=== PATIENT | male | born 1960 | race Caucasian/White ===

== ENCOUNTER 2019-10-01 16:51 | Emergency (ER) | payer MEDICARE, OTHER ==
[~2019-10-01] VITALS: Ht 182.9 cm; Wt 83.9 kg
[2019-10-01] MEDS ORDERED: fentaNYL PF VIAL 100 MCG/2 ML VIAL IVP ONE (17:45)
--- NOTE | 2019-10-01 18:00 | PHYS DOC ---
Past Medical History Past Medical History: COPD, GERD Additional Past Medical Histor: GOUT (IZABELLA HURLEY MD) Past Surgical History: No Surgical History (IZABELLA HURLEY MD) Alcohol Use: None Drug Use: None (IZABELLA HURLEY MD) Adult General Chief Complaint Chief Complaint: HAND PROBLEM HPI HPI Patient is a 59 year old right-handed male with history of gout and smoking who presents with complaining of left hand pain and swelling. Patient complaining of nontraumatic left hand edema and pain for more than one week that gradually getting worse. Patient states he feels more pain with movement of his finger and denies injury, fever and chills, focal neuro deficit, history of the same problem. Patient states he had history of gout and thought he had gout but his edema and pain became worse. (IZABELLA HURLEY MD) Review of Systems Review of Systems Constitutional: Denies fever or chills [] Eyes: Denies change in visual acuity, redness, or eye pain [] HENT: Denies nasal congestion or sore throat [] Respiratory: Denies cough or shortness of breath [] Cardiovascular: No additional information not addressed in HPI [] GI: Denies abdominal pain, nausea, vomiting, bloody stools or diarrhea [] : Denies dysuria or hematuria [] Musculoskeletal: Denies back pain, reports joint pain [] Integument: Denies rash or skin lesions [] Neurologic: Denies headache, focal weakness or sensory changes [] Endocrine: Denies polyuria or polydipsia [] All other systems were reviewed and found to be within normal limits, except as documented in this note. (IZABELLA HURLEY MD) Current Medications Current Medications Current Medications Medications (Trade) Dose Ordered Sig/Shimon Start Time Stop Time Status Last Admin Dose Admin Fentanyl Citrate (Fentanyl 2ml Vial) 50 mcg 1X ONCE 10/01/19 17:45 10/01/19 17:46 DC 10/01/19 18:51 50 MCG (CARLEY DUPREE MD) Allergies Allergies Allergies Coded Allergies Type Severity Reaction Last Updated Verified No Known Drug Allergies 10/01/19 No (CARLEY DUPREE MD) Physical Exam Physical Exam Constitutional: Well developed, well nourished, mild distress, non-toxic appearance. [] HENT: Normocephalic, atraumatic. Eyes: PERRLA, EOMI, conjunctiva normal, no discharge. [] Neck: Normal range of motion, no tenderness, supple, no stridor. [] Cardiovascular:Heart rate regular rhythm, no murmur [] Lungs & Thorax: Bilateral breath sounds clear to auscultation [] Extremities: Left hand with severe edema without erythema, mild tenderness, palpable radial pulse but pale fingers with decrease of cap refill. Neurologic: Alert and oriented X 3, no focal deficits noted. [] Psychologic: Affect normal, judgement normal, mood normal. [] (IZABELLA HURLEY MD) Current Patient Data Vital Signs Vital Signs Date Time Temp Pulse Resp B/P (MAP) Pulse Ox O2 Delivery O2 Flow Rate FiO2 10/01/19 18:51 20 95 Room Air 10/01/19 18:49 64 154/95 (114) 10/01/19 17:05 97.8 97.8 (CARLEY DUPREE MD) Lab Values Laboratory Tests Test 10/01/19 18:42 White Blood Count 11.0 x10^3/uL (4.0-11.0) Red Blood Count 4.19 x10^6/uL (4.30-5.70) L Hemoglobin 13.3 g/dL (13.0-17.5) Hematocrit 39.5 % (39.0-53.0) Mean Corpuscular Volume 95 fL (79-100) Mean Corpuscular Hemoglobin 32 pg (25-35) Mean Corpuscular Hemoglobin Concent 34 g/dL (31-37) Red Cell Distribution Width 16.1 % (11.5-14.5) H Platelet Count 293 x10^3/uL (140-400) Neutrophils (%) (Auto) 62 % (31-73) Lymphocytes (%) (Auto) 30 % (24-48) Monocytes (%) (Auto) 5 % (0-9) Eosinophils (%) (Auto) 2 % (0-3) Basophils (%) (Auto) 1 % (0-3) Neutrophils # (Auto) 6.8 x10^3/uL (1.8-7.7) Lymphocytes # (Auto) 3.3 x10^3/uL (1.0-4.8) Monocytes # (Auto) 0.5 x10^3/uL (0.0-1.1) Eosinophils # (Auto) 0.2 x10^3/uL (0.0-0.7) Basophils # (Auto) 0.1 x10^3/uL (0.0-0.2) Prothrombin Time 12.4 SEC (11.7-14.0) Prothrombin Time INR 1.0 (0.8-1.1) Activated Partial Thromboplast Time 34 SEC (24-38) Sodium Level 134 mmol/L (136-145) L Potassium Level 4.8 mmol/L (3.5-5.1) Chloride Level 99 mmol/L (98-107) Carbon Dioxide Level 26 mmol/L (21-32) Anion Gap 9 (6-14) Blood Urea Nitrogen 27 mg/dL (8-26) H Creatinine 1.9 mg/dL (0.7-1.3) H Estimated GFR (Cockcroft-Gault) 36.2 BUN/Creatinine Ratio 14 (6-20) Glucose Level 91 mg/dL (70-99) Lactic Acid Level 0.7 mmol/L (0.4-2.0) Uric Acid 9.8 mg/dL (3.5-7.2) H Calcium Level 9.7 mg/dL (8.5-10.1) Total Bilirubin 0.3 mg/dL (0.2-1.0) Aspartate Amino Transferase (AST) 58 U/L (15-37) H Alanine Aminotransferase (ALT) 32 U/L (16-63) Alkaline Phosphatase 111 U/L (46-116) Total Protein 8.6 g/dL (6.4-8.2) H Albumin 3.9 g/dL (3.4-5.0) Albumin/Globulin Ratio 0.8 (1.0-1.7) L Laboratory Tests 10/01/19 18:42 Laboratory Tests 10/01/19 18:42 (CARLEY DUPREE MD) EKG EKG [] (IZABELLA HURLEY MD) Radiology/Procedures Radiology/Procedures [] (IZABELLA HURLEY MD) Radiology/Procedures [facility] [address] [place], [place] [id number] IMAGING REPORT Signed PATIENT: GENA LADD ACCOUNT: [id number] : 1960 LOCATION: ER AGE: 59 SEX: M EXAM STATUS: REG ER ORD. PHYSICIAN: IZABELLA HURLEY MD REASON: severe edema of left hand with pale fingers, + radial pulse PROCEDURE: VENOUS UPPER EXTREMITY LEFT Left upper extremity venous Doppler dated 10/01/2019. No comparison available. Clinical data indication: Edema left hand. FINDINGS: Grayscale, color-flow and spectral waveform analysis performed to include the deep venous system of the left upper extremity. There is normal compressibility, phasicity and augmentation of flow throughout the deep veins. The distal cephalic vein in the forearm shows incomplete filling and may be partially occluded. There is also a nodular focus of arterial flow that appears to communicate with the distal left radial artery, measuring up to 1.5 cm in size. IMPRESSION: 1. No evidence of left upper extremity deep vein thrombosis. 2. Ovoid 1.5 cm nodular focus of arterial flow appears to indicate with the distal left radial artery, suggesting aneurysm or pseudoaneurysm. Correlate clinically. 3. Partially occlusive thrombosis or focal narrowing of the distal cephalic vein in the forearm. Electronically signed by: Vidal Baird MD (10/01/2019 6:08 PM) [facility] DICTATED and SIGNED BY: VIDAL BAIRD MD DATE: 10/01/191807 (CARLEY DUPREE MD) Course & Med Decision Making Course & Med Decision Making Pertinent Labs and Imaging studies pending. Sign out given to at 1800 for further evaluation and final disposition. Discussed current findings and plan with patient and family, who acknowledge understanding and agreement. (IZABELLA HURLEY MD) Course & Med Decision Making Ultrasound reveals superficial nonocclusive DVT in cephalic vein, no evidence of DVT. He does have narrowing with some focal arterial blood flow however pulses appreciated distally. Recommend follow with hand as an outpatient a [facility]. Uric acid is elevated at 9.8. We'll treat with colchicine however will need to have kidney function monitor closely given creatinine 1.9. Lactic acid 0.7, hemoglobin stable, white blood cell count 11.0. Recommend po abx therapy for potential developing cellulitis however likely gout related. Discussed return precautions with patient and friend at bedside. (CARLEY DUPREE MD) Dragon Disclaimer Dragon Disclaimer This electronic medical record was generated, in whole or in part, using a voice recognition dictation system. (IZABELLA HURLEY MD) Departure Departure Impression: Primary Impression: Hand edema Additional Impressions: Gout ILIANA (acute kidney injury) Disposition: HOME, SELF-CARE Condition: STABLE Referrals: NON,STAFF (PCP) Patient Instructions: Cellulitis, [id number], Gout, [id number], Peripheral Edema Additional Instructions: Recommend follow up with PCP 3 - 5 days Return to the ER with worsening symptoms, intractable pain, fever, altered mental status Tylenol/Motrin as needed for pain Take antibiotics and medications as directed Keflex 500mg 2 po BID x 7 days Uric acid rx provided upon discharge Return precautions - watch for streaking, increased swelling, pain, change in color of finger tips, pain to finger tips Scripts Colchicine (Colchicine) 0.6 Mg Tablet 1 TAB PO BID for gout pain for 3 Days, #6 TAB 0 Refills Prov: CARLEY DUPREE MD 10/01/19 Cephalexin (KEFLEX) 500 Mg Capsule 2 CAP PO Q12HR for 7 Days, #28 CAP Prov: CARLEY DUPREE MD 10/01/19 Problem Qualifiers IZABELLA HURLEY MD Oct 01, 2019 18:00 CARLEY DUPREE MD Oct 01, 2019 19:27
--- NOTE | 2019-10-01 18:11 | RAD ---
Left upper extremity venous Doppler dated 10/01/2019. No comparison available. Clinical data indication: Edema left hand. FINDINGS: Grayscale, color-flow and spectral waveform analysis performed to include the deep venous system of the left upper extremity. There is normal compressibility, phasicity and augmentation of flow throughout the deep veins. The distal cephalic vein in the forearm shows incomplete filling and may be partially occluded. There is also a nodular focus of arterial flow that appears to communicate with the distal left radial artery, measuring up to 1.5 cm in size. IMPRESSION: 1. No evidence of left upper extremity deep vein thrombosis. 2. Ovoid 1.5 cm nodular focus of arterial flow appears to indicate with the distal left radial artery, suggesting aneurysm or pseudoaneurysm. Correlate clinically. 3. Partially occlusive thrombosis or focal narrowing of the distal cephalic vein in the forearm. Electronically signed by: Vidal Baird MD (10/01/2019 6:08 PM) [facility]
[2019-10-01 18:53] LABS: BASO # 0.1 x10^3/uL (0.0-0.2); BASO % 1 % (0-3); EOS # 0.2 x10^3/uL (0.0-0.7); EOS % 2 % (0-3); HEMATOCRIT 39.5 % (39.0-53.0); HEMOGLOBIN 13.3 g/dL (13.0-17.5); LYMPH # 3.3 x10^3/uL (1.0-4.8); LYMPH % 30 % (24-48); MEAN CORPUSCULAR HEMOGLOBIN 32 pg (25-35); MEAN CORPUSCULAR HGB CONC 34 g/dL (31-37); MEAN CORPUSCULAR VOLUME 95 fL (79-100); MONO # 0.5 x10^3/uL (0.0-1.1); MONO % 5 % (0-9); NEUT # 6.8 x10^3/uL (1.8-7.7); NEUT % 62 % (31-73); PLATELET COUNT 293 x10^3/uL (140-400); RED BLOOD COUNT 4.19 x10^6/uL (4.30-5.70); RED CELL DISTRIBUTION WIDTH 16.1 % (11.5-14.5)
[2019-10-01 19:01] LABS: CALCIUM 9.7 mg/dL (8.5-10.1); CREATININE 1.9 mg/dL (0.7-1.3); GFR 36.2; POTASSIUM 4.8 mmol/L (3.5-5.1)
[2019-10-01 19:02] LABS: PROTHROMBIN TIME PATIENT 12.4 SEC (11.7-14.0)
[2019-10-01 19:16] LABS: ALBUMIN 3.9 g/dL (3.4-5.0); ALBUMIN/GLOBULIN RATIO 0.8 (1.0-1.7); TOTAL BILIRUBIN 0.3 mg/dL (0.2-1.0); TOTAL PROTEIN 8.6 g/dL (6.4-8.2)
[2019-10-01 19:18] VITALS: BP 155/97
[2019-10-01] MEDS ORDERED: CEPH-264 PO (19:26)
[2019-10-01] MEDS ORDERED: COLC0.6T42 PO (19:26)
[2019-10-01 19:35] LABS: % BANDS 3 % (0-9); % BASOS 2 % (0-3); % LYMPHS 41 % (24-48); % MONOS 3 % (0-10); % SEGS 51 % (35-66); PLATELET CLUMP PRESENT; PLT ESTIMATE ADEQUATE (ADEQUATE)
--- NOTE | 2019-10-01 20:27 | RAD ---
Examination: HAND LEFT 3V History: Edema without injury Comparison/Correlation: None Findings: Total 3 images of the left hand were obtained. Degenerative spurring about the interphalangeal joints noted. Advanced first carpometacarpal joint degenerative changes noted. Spurring about the first carpometacarpal joint appears to be notable. Bony density at the first carpometacarpal joint which probably represents spurring is present. No conclusive fracture. Marked narrowing of the third metacarpophalangeal joint with degenerative remodeling noted. Narrowing of the second metacarpophalangeal joint with remodeling noted. Degenerative cystic involvement of the lunate bone in the distal ulna noted. Distal radioulnar joint degenerative changes evident. Soft tissue swelling is present involving the hand especially the dorsal aspect. Impression: Advanced degenerative changes. Correlate for underlying arthritides. Soft tissue swelling. Electronically signed by: Jim Esparza MD (10/01/2019 8:25 PM) [facility]
== END 2019-10-01 19:50 | disposition home or self-care (01) ==
LOC: ER 16:51
DX: N17.9 Acute kidney failure, unspecified (principal); M10.9 Gout, unspecified; R60.0 Localized edema; J44.9 Chronic obstructive pulmonary disease, unspecified; K21.9 Gastro-esophageal reflux disease without esophagitis
CPT/HCPCS: 36415; 73130; 80053; 83605; 84550; 85007; 85025; 85610; 85651; 85730; 93971; 96374; 99285; J3010